=== PATIENT | male | born 1975 | race Caucasian/White ===

== ENCOUNTER 2018-06-10 00:47 | Emergency (ER) | payer BC ==
[2018-06-10 03:24] LABS: ABS Basophils 0.1 10^3/ul (0-0.2); ABS Eosinophils 0.3 10^3/ul (0-0.6); ABS Lymphocytes 2.3 10^3/ul (1.0-4.8); ABS Monocytes 0.5 10^3/ul (0-0.8); ABS Neutrophils 7.9 10^3/ul (1.5-7.7); ABS Nucleated RBC 0 10^3/ul; Hematocrit 44 % (42-52); Hemoglobin 15.2 g/dl (14.0-18.0); Lymphocyte % 20.5 % (25-47); Mean Corpuscular HGB Conc 35 g/dl (31-36); Mean Corpuscular Hemoglobin 31 pg (27-31); Mean Corpuscular Volume 88 fL (80-94); Mean Platelet Volume 7.3 um3 (7.4-10.4); Nucleated Red Blood Cells % 0; Platelet Count 253 10^3/ul (150-450); Red Blood Count 4.97 10^6/ul (4.00-5.40); Red Cell Distribution Width 14 % (10.5-15); White Blood Count 11.2 10^3/ul (3.5-10.8)
[2018-06-10 03:31] LABS: INR 1.05 (0.77-1.02)
[2018-06-10 03:40] LABS: EGFR Non-African American 86.3 (>60)
[2018-06-10 04:14] VITALS: BP 128/83
--- NOTE | 2018-06-10 05:31 | ED ---
Altered Mental Status - HPI Summary HPI Summary: Patient is a 42 y/o M w/ c/o anxiety. He reports that he has been feeling anxious the past couple of weeks. Patient states he was playing video games today when he began to experience blurred vision and dizziness. He reports he got more and more anxious because of this, called significant other and came to ED. Patient reports that he is concerned he has bad o2 sats, notes that he is a diabetic, Dx two years ago, BG controlled by diet. No medications reported. On triage, pain is denied, sitting down and using IPAD as distraction alleviates Sx , nothing is reported to aggravate. - History Of Current Complaint Chief Complaint: EDGeneral Stated Complaint: ANXIETY/SOB/DIZZINESS Time Seen by Provider: 06/10/18 02:39 Hx Obtained From: Patient Onset/Duration: Still Present Timing: Constant, Lasting Weeks Severity Currently: None Aggravating Factor(s): Nothing Alleviating Factor(s): Other - sitting, using IPAD Associated Signs And Symptoms: Positive: Dizziness - Allergies/Home Medications Allergies/Adverse Reactions: Allergies Allergy/AdvReac Type Severity Reaction Status Date / Time MS Glyburide [Glyburide] Allergy Blurred Verified 02/17/16 11:38 Vision MS Metformin [Metformin] Allergy Nausea And Verified 02/17/16 11:38 Vomiting PMH/Surg Hx/FS Hx/Imm Hx Endocrine/Hematology History: Reports: Hx Diabetes - not taking meds now Denies: Hx Thyroid Disease Cardiovascular History: Denies: Hx Hypertension Respiratory History: Denies: Hx Asthma, Hx Chronic Obstructive Pulmonary Disease (COPD) GI History: Denies: Hx Ulcer Infectious Disease History: No Infectious Disease History: Denies: Hx Clostridium Difficile, Hx Hepatitis, Hx Human Immunodeficiency Virus (HIV), Hx of Known/Suspected MRSA, Hx Shingles, Hx Tuberculosis, Hx Known/ Suspected VRE, Hx Known/Suspected VRSA, History Other Infectious Disease, Traveled Outside the [place] in Last 30 Days - Family History Known Family History: Negative: Blood Disorder - Social History Alcohol Use: Rare Substance Use Type: Reports: Marijuana Substance Use Comment - Amount & Last Used: daily Smoking Status (MU): Current Some Day Smoker Type: Cigarettes Amount Used/How Often: at work one day a week. Have You Smoked in the Last Year: Yes Review of Systems Positive: Blurred Vision Neurological: Other - dizziness Positive: Anxious All Other Systems Reviewed And Are Negative: Yes Physical Exam - Summary Physical Exam Summary: VITAL SIGNS: Reviewed. GENERAL: Patient is a well-developed and nourished male who is lying comfortable in the stretcher. Patient is not in any acute respiratory distress. HEAD AND FACE: No signs of trauma. No ecchymosis, hematomas or skull depressions. No sinus tenderness. EYES: PERRLA, EOMI x 2, No injected conjunctiva, no nystagmus. EARS: Hearing grossly intact. Ear canals and tympanic membranes are within normal limits. MOUTH: Oropharynx within normal limits. NECK: Supple, trachea is midline, no adenopathy, no JVD, no carotid bruit, no c- spine tenderness, neck with full ROM. CHEST: Symmetric, no tenderness at palpation LUNGS: Clear to auscultation bilaterally. No wheezing or crackles. CVS: Regular rate and rhythm, S1 and S2 present, no murmurs or gallops appreciated. ABDOMEN: Soft, non-tender. No signs of distention. No rebound no guarding, and no masses palpated. Bowel sounds are normal. EXTREMITIES: FROM in all major joints, no edema, no cyanosis or clubbing. NEURO: Alert and oriented x 3. No acute neurological deficits. Speech is normal and follows commands. SKIN: Dry and warm Triage Information Reviewed: Yes Vital Signs On Initial Exam: Initial Vitals Temp Pulse Resp BP Pulse Ox 98.4 F 85 20 132/84 93 06/10/18 00:49 06/10/18 00:49 06/10/18 00:49 06/10/18 00:49 06/10/18 00:49 Vital Signs Reviewed: Yes Diagnostics - Vital Signs Vital Signs Temp Pulse Resp BP Pulse Ox 06/10/18 04:34 97.9 F 90 20 128/83 92 06/10/18 04:13 97.9 F 90 20 128/83 92 06/10/18 00:49 98.4 F 85 20 132/84 93 - Laboratory Lab Results: Lab Results 06/10/18 06/10/18 06/10/18 Range/Units 03:17 03:17 03:17 WBC 11.2 H (3.5-10.8) 10^3/ul RBC 4.97 (4.00-5.40) 10^6/ul Hgb 15.2 (14.0-18.0) g/dl Hct 44 (42-52) % MCV 88 (80-94) fL MCH 31 (27-31) pg MCHC 35 (31-36) g/dl RDW 14 (10.5-15) % Plt Count 253 (150-450) 10^3/ul MPV 7.3 L (7.4-10.4) um3 Neut % (Auto) 70.5 (38-83) % Lymph % (Auto) 20.5 L (25-47) % Sanders % (Auto) 4.7 (0-7) % Eos % (Auto) 3.0 (0-6) % Baso % (Auto) 1.3 (0-2) % Absolute Neuts (auto) 7.9 H (1.5-7.7) 10^3/ul Absolute Lymphs (auto) 2.3 (1.0-4.8) 10^3/ul Absolute Monos (auto) 0.5 (0-0.8) 10^3/ul Absolute Eos (auto) 0.3 (0-0.6) 10^3/ul Absolute Basos (auto) 0.1 (0-0.2) 10^3/ul Absolute Nucleated RBC 0 10^3/ul Nucleated RBC % 0 INR (Anticoag Therapy) 1.05 H (0.77-1.02) APTT 32.3 (26.0-36.3) seconds Sodium 135 (135-145) mmol/L Potassium 4.2 (3.5-5.0) mmol/L Chloride 104 (101-111) mmol/L Carbon Dioxide 24 (22-32) mmol/L Anion Gap 7 (2-11) mmol/L BUN 15 (6-24) mg/dL Creatinine 0.96 (0.67-1.17) mg/dL Est GFR ( Amer) 104.4 (>60) Est GFR (Non-Af Amer) 86.3 (>60) BUN/Creatinine Ratio 15.6 (8-20) Glucose 137 H (70-100) mg/dL Lactic Acid (0.5-2.0) mmol/L Calcium 9.4 (8.6-10.3) mg/dL Total Bilirubin 0.50 (0.2-1.0) mg/dL AST 26 (13-39) U/L ALT 36 (7-52) U/L Alkaline Phosphatase 81 (34-104) U/L Troponin I 0.00 (<0.04) ng/mL B-Natriuretic Peptide ( - 100) pg/mL Total Protein 7.8 (6.4-8.9) g/dL Albumin 4.7 (3.2-5.2) g/dL Globulin 3.1 (2-4) g/dL Albumin/Globulin Ratio 1.5 (1-3) 06/10/18 06/10/18 Range/Units 03:17 03:17 WBC (3.5-10.8) 10^3/ul RBC (4.00-5.40) 10^6/ul Hgb (14.0-18.0) g/dl Hct (42-52) % MCV (80-94) fL MCH (27-31) pg MCHC (31-36) g/dl RDW (10.5-15) % Plt Count (150-450) 10^3/ul MPV (7.4-10.4) um3 Neut % (Auto) (38-83) % Lymph % (Auto) (25-47) % Sanders % (Auto) (0-7) % Eos % (Auto) (0-6) % Baso % (Auto) (0-2) % Absolute Neuts (auto) (1.5-7.7) 10^3/ul Absolute Lymphs (auto) (1.0-4.8) 10^3/ul Absolute Monos (auto) (0-0.8) 10^3/ul Absolute Eos (auto) (0-0.6) 10^3/ul Absolute Basos (auto) (0-0.2) 10^3/ul Absolute Nucleated RBC 10^3/ul Nucleated RBC % INR (Anticoag Therapy) (0.77-1.02) APTT (26.0-36.3) seconds Sodium (135-145) mmol/L Potassium (3.5-5.0) mmol/L Chloride (101-111) mmol/L Carbon Dioxide (22-32) mmol/L Anion Gap (2-11) mmol/L BUN (6-24) mg/dL Creatinine (0.67-1.17) mg/dL Est GFR ( Amer) (>60) Est GFR (Non-Af Amer) (>60) BUN/Creatinine Ratio (8-20) Glucose (70-100) mg/dL Lactic Acid 1.0 (0.5-2.0) mmol/L Calcium (8.6-10.3) mg/dL Total Bilirubin (0.2-1.0) mg/dL AST (13-39) U/L ALT (7-52) U/L Alkaline Phosphatase (34-104) U/L Troponin I (<0.04) ng/mL B-Natriuretic Peptide 8 ( - 100) pg/mL Total Protein (6.4-8.9) g/dL Albumin (3.2-5.2) g/dL Globulin (2-4) g/dL Albumin/Globulin Ratio (1-3) Result Diagrams: 06/10/18 03:17 06/10/18 03:17 Lab Statement: Any lab studies that have been ordered have been reviewed, and results considered in the medical decision making process. - EKG 0408 Cardiac Rate: NL - rate of 85 bpm EKG Rhythm: Sinus Rhythm EKG Interpretation: Normal axis. Normal interval. No ischemic changes Re-Evaluation - Re-Evaluation First Eval Re-Evaluation Time: 04:23 Comment: Results of labs and tests were discussed, patient is feeling better. She will be discharged to home and follow up with PCP. Altered Mental Statu Course/Dx - Course Course Of Treatment: Patient is a 42 y/o M w/ c/o anxiety. He reports that he has been feeling anxious the past couple of weeks. Patient states he was playing video games today when he began to experience blurred vision and dizziness. He reports he got more and more anxious because of this, called significant other and came to ED. Physical exam was normal. EKG showed sinus rhythm of 85 BPM, Normal axis. Normal interval. No ischemic changes. Labs showed BNP 8, trop 0, lactic acid 1.0, WBC 11.2, glucose 137. Results of labs and tests were discussed, patient is feeling better. She will be discharged to home and follow up with PCP. Dx of anxiety. - Diagnoses Provider Diagnoses: Anxiety Discharge - Sign-Out/Discharge Documenting (check all that apply): Patient Departure - discharge - Discharge Plan Condition: Stable Disposition: HOME Patient Education Materials: Anxiety (ED) Referrals: Andres Coffman MD [Primary Care Provider] - 2 Days Additional Instructions: RETURN TO THE EMERGENCY DEPARTMENT FOR CHANGING OR WORSENING SYMPTOMS. FOLLOW UP WITH PRIMARY CARE PHYSICIAN IN 1-2 DAYS. - Attestation Statements Document Initiated by Scribe: Yes Documenting Scribe: Dandre Monteiro Provider For Whom Scribe is Documenting (Include Credential): Niraj Suh MD Scribe Attestation: IDandre , scribed for Niraj Suh MD on 06/10/18 at 0533.
== END 2018-06-10 04:35 | disposition home or self-care (01) ==
LOC: ED 00:47
DX: F41.9 Anxiety disorder, unspecified (principal); R42 Dizziness and giddiness; Z88.8 Allergy status to other drugs, medicaments and biological substances; Z72.0 Tobacco use
CPT/HCPCS: 36415; 80053; 83605; 83880; 84484; 85025; 85610; 85730; 93005; 99281

== ENCOUNTER 2018-10-16 14:12 | Emergency (ER) | payer BC ==
[2018-10-16 14:20] VITALS: BP 122/76
--- NOTE | 2018-10-16 14:56 | UC ---
Throat Pain/Nasal Wally HPI - HPI Summary HPI Summary: Patient presents to urgent care reporting 5 days of fatigue, body ache, cough productive of yellow-green sputum, congestion. Patient states he's been taking DayQuil couple times and took 800 mg of Motrin. 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 Patient does have diabetes but does not take any medications. Dietary Control. Patient states he came today discussed he doesn't feel he is getting better. Patient with a remote history of pneumonia. No lung disease. Patient smokes very occasionally. Patient's medications reviewed this visit. - History of Current Complaint Chief Complaint: UCGeneralIllness Stated Complaint: CONGESTED Time Seen by Provider: 10/16/18 14:52 Hx Obtained From: Patient Onset/Duration: Gradual Onset Severity: Moderate Pain Intensity: 5 Pain Scale Used: 0-10 Numeric Cough: Sputum Appears - yellow to green - Allergies/Home Medications Allergies/Adverse Reactions: Allergies Allergy/AdvReac Type Severity Reaction Status Date / Time glyburide Allergy Blurred Verified 10/16/18 14:21 Vision metformin Allergy Nausea And Verified 10/16/18 14:21 Vomiting MS Glyburide [Glyburide] Allergy Blurred Verified 02/17/16 11:38 Vision MS Metformin [Metformin] Allergy Nausea And Verified 02/17/16 11:38 Vomiting PMH/Surg Hx/FS Hx/Imm Hx Previously Healthy: Yes Endocrine History: Diabetes - diet controlled - Surgical History Surgical History: None - Family History Known Family History: Positive: Non-Contributory Negative: Blood Disorder - Social History Occupation: Employed Part-time, Student Lives: With Family Alcohol Use: Rare Substance Use Type: Marijuana Substance Use Comment - Amount & Last Used: daily Smoking Status (MU): Current Some Day Smoker Type: Cigarettes Amount Used/How Often: at work one day a week. Have You Smoked in the Last Year: Yes Household Exposure Type: Cigarettes Review of Systems All Other Systems Reviewed And Are Negative: Yes Constitutional: Positive: Fever, Chills, Fatigue Skin: Positive: Negative Eyes: Positive: Negative ENT: Positive: Nasal Discharge, Sinus Congestion, Sinus Pain/Tenderness Respiratory: Positive: Cough, Other - intermittent wheeze Cardiovascular: Positive: Negative Gastrointestinal: Positive: Negative Genitourinary: Positive: Negative Physical Exam Appearance: Well-Appearing, Well-Nourished, Other: - tired appearing Vital Signs: Initial Vital Signs Temp 96.9 F 10/16/18 14:17 Pulse 94 10/16/18 14:17 Resp 16 10/16/18 14:17 BP 122/76 10/16/18 14:17 Pulse Ox 100 10/16/18 14:17 Vital Signs Reviewed: Yes Eye Exam: Normal Eyes: Positive: Conjunctiva Clear ENT: Positive: Hearing grossly normal, Pharynx normal, TMs normal, Other - turbinates inflammed and boggy + PND no erythema uvula midline Dental Exam: Normal Neck exam: Normal Neck: Positive: Supple, Nontender, No Lymphadenopathy Respiratory: Positive: No respiratory distress, Wheezing - end exp wheeze diffuse no accessory muscle use, Other: - intermittent cough. Negative: Lungs clear Cardiovascular Exam: Normal Cardiovascular: Positive: RRR, No Murmur Musculoskeletal Exam: Normal Neurological Exam: Normal Neurological: Positive: Alert Psychological Exam: Normal Skin Exam: Normal Diagnostics - Radiology No standard instances Radiology Interpretation Completed By: Radiologist - Patient Name: DONAVAN ASHBY Medical Record#: [id number] Ordering Physician: Fernanda Garza MD Acct.#: [id number] : 1975 Age: 42 Sex: M Location: [facility] Exam Date: 10/16/18 1504 ADM Status: REG ER Order Information: CHEST PA & LAT 2 VWS Accession Number: [id number] CPT: 02340 INDICATION: Productive cough and fever. COMPARISON: Comparison is made with a prior study from July 04, 2009. TECHNIQUE: Dual-energy PA and lateral views of the chest were obtained. FINDINGS: The heart is within normal limits in size. Mediastinal and hilar contours appear within normal limits. There is a small infiltrate present at the right lung base. No pleural effusion is seen. IMPRESSION: SMALL RIGHT BASILAR INFILTRATE. __ <Electronically signed by Gallito Sampson MD in OV> 10/16/18 1535 Dictated By: Gallito Sampson MD Dictated Date/Time: 10/16/18 1535 Transcribed Date/Time: 10/16/18 1533 Copy to: CC:Fernanda Garza MD; Andres Coffman MD Imaging - [facility] Imaging - [facility] Imaging - [facility] [id number] [place] [id number] ph ([phone] ph ([phone]) ph ([phone]) This report is only to be considered final once signed by the Provider(s) as displayed in the "<Electronically Signed by >" field (s). Absence of a signature indicates the report is in a draft status and still needs to be finalized. In the event this document was created by someone other than the signing Provider, the individual initiating the document will be listed in the "Entered by:" or "Dictated by:" bell. 1 of 1 Throat Pain/Nasal Course/Dx - Course Course Of Treatment: Patient presents to urgent care reporting 5 days of progressive body aches, fatigue, cough with productive yellow to green sputum. Patient also with sinus congestion and body aches. Patient has taken Motrin as well as DayQuil. Last dose was 11:00am this morning took 800mg of Motrin. Vital signs stable. Pt appears tired,but is in no distress. Noted patient does have sinus congestion as well as cough. With patient with an expiratory wheeze. Patient is a diabetic. We'll check a flu. We'll give a DuoNeb. We' ll check a chest x-ray. Patient comfortable agreement with plan. - Differential Dx/Diagnosis Provider Diagnosis: Pneumonia and influenza Discharge - Sign-Out/Discharge Documenting (check all that apply): Patient Departure All imaging exams completed and their final reports reviewed: Yes - Discharge Plan Condition: Stable Disposition: HOME Prescriptions: Albuterol HFA INHALER* [Ventolin HFA Inhaler*] 2 puff INH Q4H PRN #1 mdi PRN Reason: wheeze DOXYcycline CAP(*) [DOXYcycline 100MG CAP(*)] 100 mg PO BID #20 cap Inhaler, Assist Devices [Aerochamber Mv] 1 each PO Q4HR #1 spacer Patient Education Materials: Influenza (ED), Community Acquired Pneumonia (ED) Forms: *School Release Referrals: Andres Coffman MD [Primary Care Provider] - Additional Instructions: - Alternate ibuprofen (Advil. Motrin) 600mg and Tylenol every 3 hours for pain or fever. Take with food. Do NOT take for more then 4-5 days - Stay well hydrated - drink plenty of non-alcoholic, non-caffinated beverages - Take antibiotics as prescribed until gone - Use the inhaler as prescribed - 2 puffs every 4 hours today and tomorrow, then as needed - These infections are spread by secretions. After you have been on antibiotics for 2 days, change your toothbrush and your pillow case - humidify the air in the room where you sleep (humidifier, boil water, run a steam shower, put cups of water next to the heat register) - Get plenty of restful sleep - Contact your doctor to schedule a follow-up appointment. Contact your doctor or go to the emergency department with questions or concerns - Billing Disposition and Condition Condition: STABLE Disposition: Home
[2018-10-16] MEDS ORDERED: Albuterol/Ipratropium NEB.SOL* Albuterol 2.5 MG/Ipratropium 0.5 MG 3 ML INH ONE (15:04)
[2018-10-16 15:30] LABS: Influenza A Molecular POSITIVE (Negative)
== END 2018-10-16 16:10 | disposition home or self-care (01) ==
LOC: UCEAST 14:12
DX: J11.00 Influenza due to unidentified influenza virus with unspecified type of pneumonia (principal); F17.210 Nicotine dependence, cigarettes, uncomplicated; E11.9 Type 2 diabetes mellitus without complications; Z88.8 Allergy status to other drugs, medicaments and biological substances
CPT/HCPCS: 71046; 99212; A9270-GY; G0463